=== PATIENT | female | born 1970 | race African-American/Black ===

== ENCOUNTER 2018-03-02 22:14 | Emergency (ER) | payer OTHER ==
[2018-03-02 23:22] LABS: Urine Blood 3+ (NEG); Urine Glucose NEGATIVE (NEG); Urine Protein NEGATIVE (NEG); Urine pH 5.5 (5.0-7.0)
[2018-03-02] MEDS ORDERED: ONDANSETRON 4 MG (ODT) TAB ONE (23:43)
[2018-03-02 23:55] LABS: Urine Culture Reflex Order NOT NEEDED
[2018-03-02 23:56] LABS: Urine Bacteria <20 /HPF (<20); Urine RBC >50 /HPF (NONE SEEN); Urine Trichomonas PRESENT (NONE SEEN)
--- NOTE | 2018-03-02 23:58 | EDPHYS ---
Physician Documentation [facility] Name: Diamante Nath Age: 47 yrs Sex: Female : 1970 Arrival Date: 03/02/2018 Time: 22:17 Bed 19 Private MD: Opal Disla H ED Physician Kris Stewart HPI: 03/03 00:22 This 47 yrs old Black Female presents to ER via Ambulatory with complaints of Urinary ps1 Problem, Nausea. 00:22 The patient presents to the emergency department with nausea. Onset: The ps1 symptoms/episode began/occurred 3 day(s) ago. Possible causes: antibiotics, bactrim for suspected UTI and abscess. The patient has been recently seen by a physician: the patient's primary care provider. no new sexual partners. C/o no discharge but urine frequency and nausea after starting bactrim for abscess. 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 - Social history:: Smoking status: Patient uses tobacco products, smokes one-half pack cigarettes per day. ROS: 03/03 00:22 Constitutional: Negative for fever, chills, and weight loss, Eyes: Negative for injury, ps1 pain, redness, and discharge, Neck: Negative for injury, pain, and swelling, Cardiovascular: Negative for chest pain, palpitations, and edema, Respiratory: Negative for shortness of breath, cough, wheezing, and pleuritic chest pain. MS/Extremity: Negative for injury and deformity, Skin: Negative for injury, rash, and discoloration, Neuro: Negative for headache, weakness, numbness, tingling, and seizure. Abdomen/GI: Positive for nausea. : Positive for urinary frequency. Exam: 00:22 Constitutional: This is a well developed, well nourished patient who is awake, alert, ps1 and in no acute distress. Head/Face: Normocephalic, atraumatic. Eyes: Pupils equal round and reactive to light, extra-ocular motions intact. Lids and lashes normal. Conjunctiva and sclera are non-icteric and not injected. Chest/axilla: Normal chest wall appearance and motion. Nontender with no deformity. No lesions are appreciated. Cardiovascular: Regular rate and rhythm. No gallops, murmurs, or rubs. Normal PMI, no JVD. No pulse deficits. Respiratory: Lungs have equal breath sounds bilaterally, clear to auscultation and percussion. No rales, rhonchi or wheezes noted. No increased work of breathing, no retractions or nasal flaring. Abdomen/GI: Soft, non-tender, with normal bowel sounds. No distension or tympany. No guarding or rebound. No evidence of tenderness throughout. Back: No spinal tenderness. No costovertebral tenderness. Full range of motion. Skin: Warm, dry with normal turgor. Normal color with no rashes, no lesions, and no evidence of cellulitis. MS/ Extremity: Pulses equal, no cyanosis. Neurovascular intact. Full, normal range of motion. Neuro: Awake and alert, GCS 15, oriented to person, place, time, and situation. Cranial nerves II-XII grossly intact. Sensory grossly intact. Vital Signs: 03/02 22:59 BP 142 / 53; Pulse 87; Resp 16 S; Temp 99.0(O); Pulse Ox 99% on R/A; Weight 81.19 kg jd3 (R); Height 5 ft. 6 in. (167.64 cm) (R); Pain 0/10; 03/03 00:34 BP 129 / 72; Pulse 79; Resp 17 S; Pulse Ox 99% on R/A; jd3 03/02 22:59 Body Mass Index 28.89 (81.19 kg, 167.64 cm) jd3 MDM: 03/02 23:36 Patient medically screened. ps1 03/03 00:22 Data reviewed: vital signs, nurses notes, lab test result(s). ps1 00:22 ED course: urine positive for trich. Will treat with flagyl. Addtionally home with ps1 zofran. . 03/02 22:57 Order name: Urine Culture snw 03/02 22:57 Order name: Urine Microscopic Only; Complete Time: 23:56 snw 03/02 23:20 Order name: Urine Dipstick--Ancillary (enter results); Complete Time: 23:29 rg2 03/02 23:22 Order name: Urine --Ancillary (enter results); Complete Time: 00:02 rg2 03/02 23:44 Order name: Basic Metabolic Panel; Complete Time: 00:22 jd3 03/02 22:57 Order name: Urine Dipstick-Ancillary (obtain specimen); Complete Time: 23:18 snw Administered Medications: 03/02 23:58 Drug: Zofran 4 mg Route: PO; jd3 03/03 00:34 Follow up: Response: No adverse reaction jd3 Disposition: 03/02/18 23:58 Discharged to Home. Impression: Trichomoniasis. - Condition is Stable. - Prescriptions for Flagyl 500 mg Oral Tablet - take 1 tablet by ORAL route every 12 hours for 7 days; 14 tablet. Zofran 4 mg Oral Tablet - take 1 tablet by ORAL route every 12 hours As needed; 20 tablet. - Medication Reconciliation Form, Thank You Letter, Antibiotic Education, Prescription Opioid Use form. - Follow up: Opal Disla DO; When: As needed; Reason: Recheck today's complaints, Continuance of care, Re-evaluation by your physician. Follow up: Emergency Department; When: As needed; Reason: Fever > 102 F, Worsening of condition. - Problem is an ongoing problem. - Symptoms are unchanged. Signatures: Dispatcher [employer] EDNy Culp, MORENO-C TIMBER INSPECTOR-Csnw Drew Stevenson, RN RN jd3 Kris Stewart MD MD ps1
--- NOTE | 2018-03-02 23:58 | ER ---
Nurse's Notes [facility] Name: Diamante Nath Age: 47 yrs Sex: Female : 1970 Arrival Date: 03/02/2018 Time: 22:17 Bed 19 Private MD: Opal Disla H Diagnosis: Trichomoniasis Presentation: 03/02 22:55 Presenting complaint: Patient states: "every time I eat or drink I have been getting jd3 nauseous for about a week now. also my legs have been cramping.". Transition of care: patient was not received from another setting of care. Onset of symptoms was February 23, 2018. Initial Sepsis Screen: Does the patient meet any 2 criteria? No. Patient's initial sepsis screen is negative. Does the patient have a suspected source of infection? No. Patient's initial sepsis screen is negative. Care prior to arrival: None. 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 - Social history:: Smoking status: Patient uses tobacco products, smokes one-half pack cigarettes per day. Screenin:01 Abuse screen: Denies threats or abuse. Nutritional screening: No deficits noted. jd3 Tuberculosis screening: No symptoms or risk factors identified. Fall Risk None identified. Assessment: 23:00 General: Appears in no apparent distress. uncomfortable, Behavior is calm, cooperative, jd3 appropriate for age. Pain: Denies pain. Neuro: Level of Consciousness is awake, alert, obeys commands. Cardiovascular: Heart tones S1 S2 present Capillary refill < 3 seconds Patient's skin is warm and dry. Respiratory: Airway is patent Respiratory effort is even, unlabored, Respiratory pattern is regular, symmetrical, Breath sounds are clear bilaterally. GI: Abdomen is round Bowel sounds present X 4 quads. Abd is soft and non tender X 4 quads. Reports nausea. : No signs and/or symptoms were reported regarding the genitourinary system. EENT: No signs and/or symptoms were reported regarding the EENT system. Derm: Skin is intact, Skin is dry, Skin is normal, Skin temperature is warm. Musculoskeletal: Circulation, motion, and sensation intact. Range of motion: intact in all extremities. 03/03 00:34 Reassessment: Patient appears in no apparent distress at this time. Patient and/or jd3 family updated on plan of care and expected duration. Pain level reassessed. Patient is alert, oriented x 3, equal unlabored respirations, skin warm/dry/pink. pt reported understanding of discharge instructions, even and steady gait upon discharge. Vital Signs: 03/02 22:59 BP 142 / 53; Pulse 87; Resp 16 S; Temp 99.0(O); Pulse Ox 99% on R/A; Weight 81.19 kg jd3 (R); Height 5 ft. 6 in. (167.64 cm) (R); Pain 0/10; 03/03 00:34 BP 129 / 72; Pulse 79; Resp 17 S; Pulse Ox 99% on R/A; jd3 03/02 22:59 Body Mass Index 28.89 (81.19 kg, 167.64 cm) jd3 ED Course: 03/02 22:17 Patient arrived in ED. am2 22:18 Opal Disla DO is Private Physician. am2 22:55 Drew Stevenson, BHAVNA is Primary Nurse. jd3 22:57 Triage completed. jd3 23:00 Arm band placed on. jd3 23:02 Patient has correct armband on for positive identification. Bed in low position. Call j light in reach. Side rails up X 1. 23:28 Kris Stewart MD is Attending Physician. ps1 23:57 Opal Disla DO is Referral Physician. ps1 23:58 Basic Metabolic Panel Sent. jd3 03/03 00:34 No provider procedures requiring assistance completed. Patient did not have IV access j during this emergency room visit. Administered Medications: 03/02 23:58 Drug: Zofran 4 mg Route: PO; jd3 03/03 00:34 Follow up: Response: No adverse reaction jd3 Outcome: 03/02 23:58 Discharge ordered by . ps1 03/03 00:34 Discharged to home ambulatory. jd3 Condition: stable Discharge instructions given to patient, Instructed on discharge instructions, follow up and referral plans. medication usage, Demonstrated understanding of instructions, follow-up care, medications, Prescriptions given X 1. 00:36 Patient left the ED. jd3 Signatures: Alla Carty Jonathon, RN RN jd3 Kris Stewart MD MD ps1
[2018-03-03 00:18] LABS: BUN Blood Urea Nitrogen 16 mg/dL (6-20); Bicarbonate 23 mEq/L (21-31); Glucose Level 138 mg/dL (65-120); Potassium 4.3 mEq/L (3.6-5.0); Sodium Level 134 mEq/L (135-145)
== END 2018-03-03 00:36 | disposition home or self-care (01) ==
LOC: ER 22:14
DX: A59.9 Trichomoniasis, unspecified (principal); I10 Essential (primary) hypertension; E11.9 Type 2 diabetes mellitus without complications; E78.00 Pure hypercholesterolemia, unspecified; F17.210 Nicotine dependence, cigarettes, uncomplicated
CPT/HCPCS: 36415; 80048; 81003; 81015; 81025; 87086; 87088; 99283

== ENCOUNTER 2018-10-03 09:05 | Emergency (ER) | payer OTHER ==
--- OUTSIDE RECORDS SUMMARY | 2018-10-03 09:07 | XMS REPORT ---
:1970 Author Organization eClinicalWorks Care Team Providers Name Role Phone Jane Montez Provider Role Unavailable Allergies No Known Allergies Problems Problem Type Condition Code Onset Dates Condition Status Problem Current smoker F17.200 Active Problem Type 2 diabetes mellitus with E11.8 Active complication, without long-term current use of insulin Problem Hypercholesteremia E78.00 Active Problem Hypertension, unspecified type I10 Active Medications Medication Code System Code Instructions Start Date End Date Status Dosage Diflucan [facility] 51420209729 150 MG Orally May 09, May 11, Active 1 tablet Take one now and 2017 2017 repeat dose in 72h Results No Known Results Summary Purpose eClinicalWorks Submission
--- OUTSIDE RECORDS SUMMARY | 2018-10-03 09:07 | XMS REPORT ---
:1970 Author Organization eClinicalWorks Care Team Providers Name Role Phone Jane Montez Provider Role Unavailable Allergies, Adverse Reactions, Alerts Substance Reaction Event Type N.K.D.A. Info Not Available Non Drug Allergy Problems Problem Type Condition Code Onset Dates Condition Status Assessment Hypertension, unspecified type I10 Active Assessment Encounter for screening mammogram Z12.31 Active for malignant neoplasm of breast Assessment Current smoker F17.200 Active Assessment Type 2 diabetes mellitus with E11.8 Active complication, without long-term current use of insulin Assessment Hypercholesteremia E78.00 Active Problem Current smoker F17.200 Active Problem Type 2 diabetes mellitus with E11.8 Active complication, without long-term current use of insulin Problem Hypercholesteremia E78.00 Active Assessment Well woman exam with routine Z01.419 Active gynecological exam Assessment Vaginal discharge N89.8 Active Problem Hypertension, unspecified type I10 Active Medications Medication Code Code Instructions Start End Status Dosage System Date Date Lovastatin [facility] 49010848122 10 MG Orally Active 1 tablet Once a day with the evening meal Lisinopril ND 43627691110 20 MG Orally Active 1 tablet Once a day Aspir-81 ND 56109225158 81 MG Orally Active 1 tablet Once a day Metformin HCl ND 16561499095 500 MG Orally Active 1 tablet Once a day with a meal Results No Known Results Summary Purpose eClinicalWorks Submission
[2018-10-03 11:18] LABS: Absolute Lymphocytes (CBC) 1.2 K/uL (0.7-4.9); Absolute Monocytes 0.4 K/uL (0.1-1.3); Absolute Neutrophil 4.8 K/uL (1.8-8.0); Basophils % 0.4 % (0-1.3); Eosinophils % 0.4 % (0-4.4); Hematocrit 38.6 % (36.0-45.0); Lymphocytes % 18.9 % (15.3-44.8); MCV 74.9 fL (80-100); MPV 8.2 fL (7.6-11.3); Monocytes % 6.3 % (3.3-12.3); RBC Red Blood Cell Count 5.16 M/uL (3.86-4.86)
[2018-10-03 11:29] LABS: Urine Blood NEGATIVE (NEG); Urine Glucose NEGATIVE (NEG); Urine Protein 2+ (NEG); Urine Specific Gravity >1.030 (1.005-1.030); Urine pH 5.5 (5.0-7.0)
[2018-10-03 11:36] LABS: Blood Morphology Comment NOT SEEN (NOT SEEN); Platelet Estimate ADEQ
[2018-10-03 11:41] LABS: ALT/SGPT 20 U/L (12-78); AST/SGOT 18 U/L (15-37); Albumin 3.9 g/dL (3.4-5.0); Alkaline Phosphatase 56 U/L (45-117); BUN Blood Urea Nitrogen 19 mg/dL (7-18); Bicarbonate 21 mmol/L (21-32); Bilirubin Direct < 0.1 mg/dL (0-0.2); Bilirubin Total 0.2 mg/dL (0.2-1.0); Glucose Level 189 mg/dL (74-106); Lipase 248 U/L (73-393); Potassium 4.2 mmol/L (3.5-5.1); Protein, Total 7.9 g/dL (6.4-8.2); Sodium Level 138 mmol/L (136-145)
--- NOTE | 2018-10-03 12:08 | ER ---
Nurse's Notes [facility] Name: Diamante Nath Age: 48 yrs Sex: Female : 1970 Arrival Date: 10/03/2018 Time: 09:12 Bed Treatment Private MD: Opal Disla H Diagnosis: Low back pain;Dysuria Presentation: 10/03 09:46 Presenting complaint: Patient states: urinary frequency Monday, yesterday woke up with iw back pain and not going very much, mild burning with urination, increasing right low back pain. Transition of care: patient was not received from another setting of care. Onset of symptoms was October 01, 2018. Risk Assessment: Do you want to hurt yourself or someone else? Patient reports no desire to harm self or others. Initial Sepsis Screen: Does the patient meet any 2 criteria? No. Patient's initial sepsis screen is negative. Does the patient have a suspected source of infection? No. Patient's initial sepsis screen is negative. Care prior to arrival: None. 09:46 Method Of Arrival: Ambulatory iw 09:46 Acuity: REBECCA 4 iw Triage Assessment: 12:00 General: Appears in no apparent distress. Behavior is calm, cooperative. 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 - Social history:: Smoking status: Patient uses tobacco products, smokes one-half pack cigarettes per day. - Ebola Screening: : Patient negative for fever greater than or equal to 101.5 degrees Fahrenheit, and additional compatible Ebola Virus Disease symptoms Patient denies exposure to infectious person Patient denies travel to an Ebola-affected area in the 21 days before illness onset No symptoms or risks identified at this time. Screenin:02 Abuse screen: Denies threats or abuse. Denies injuries from another. Nutritional iw screening: No deficits noted. Tuberculosis screening: No symptoms or risk factors identified. Fall Risk IV access (20 points). Assessment: 11:00 General: Appears in no apparent distress. Behavior is calm, cooperative. Pain: iw Complains of pain in right low back. Neuro: Level of Consciousness is awake, alert, obeys commands, Oriented to person, place, time, situation. Cardiovascular: Capillary refill < 3 seconds in bilateral fingers Patient's skin is warm and dry. Respiratory: Respiratory effort is even, unlabored, Respiratory pattern is regular, symmetrical. GI: No signs and/or symptoms were reported involving the gastrointestinal system. Derm: Skin is intact, is healthy with good turgor. Musculoskeletal: Range of motion: intact in all extremities. 12:02 Reassessment: Patient appears in no apparent distress at this time. Patient and/or iw family updated on plan of care and expected duration. Pain level reassessed. Patient is alert, oriented x 3, equal unlabored respirations, skin warm/dry/pink. Vital Signs: 09:49 BP 122 / 74; Pulse 100; Resp 18 S; Temp 97.4(TE); Pulse Ox 99% on R/A; Weight 83.01 kg; iw Height 5 ft. 6 in. (167.64 cm); Pain 8/10; 09:49 Body Mass Index 29.54 (83.01 kg, 167.64 cm) iw ED Course: 09:12 Patient arrived in ED. mr 09:12 Opal Disla DO is Private Physician. mr 09:48 Triage completed. iw 09:49 Arm band placed on. iw 10:18 Te Mariano PA is PHCP. jmm 10:18 Raleigh Azevedo MD is Attending Physician. jmm 11:00 Patient has correct armband on for positive identification. iw 11:02 Karon Terry, BHAVNA is Primary Nurse. iw 11:02 Initial lab(s) drawn, by me, sent to lab. Inserted saline lock: 20 gauge in left iw antecubital area, using aseptic technique. Blood collected. 11:47 US Extremity Venous Unilateral Ltd In Process Unspecified. EDMS 12:00 No provider procedures requiring assistance completed. iw 12:08 Opal Disla DO is Referral Physician. sweetie 12:24 IV discontinued, intact, bleeding controlled, No redness/swelling at site. Pressure iw dressing applied. Administered Medications: No medications were administered Outcome: 12: Discharge ordered by MD. sweetie 12: Discharged to home ambulatory. iw 12:25 Condition: good 12:25 Discharge instructions given to patient, Instructed on discharge instructions, follow up and referral plans. medication usage, Demonstrated understanding of instructions, follow-up care, medications, Prescriptions given X 2. 12:26 Patient left the ED. iw Signatures: Dispatcher [employer] EDMS Te Mariano PA PA jmm Rivera, Mary mr Williams, Irene, BHAVNA RN iw
--- NOTE | 2018-10-03 12:09 | EDPHYS ---
Physician Documentation [facility] Name: Diamante Nath Age: 48 yrs Sex: Female : 1970 Arrival Date: 10/03/2018 Time: 09:12 Bed Treatment Private MD: Opal Disla H ED Physician Raleigh Azevedo HPI: 10/03 10:25 This 48 yrs old Black Female presents to ER via Ambulatory with complaints of Urinary jmm Problem, Back Pain. 10:25 The patient presents with urinary symptoms, dysuria. Onset: The symptoms/episode jmm began/occurred gradually. 10:26 Modifying factors: The symptoms are alleviated by nothing, the symptoms are aggravated jmm by nothing. Associated signs and symptoms: Pertinent negatives: diarrhea, fever. This is a 48 year old female that presents to the ED with difficulty with urination and lower back pain. Patient denies abdominal pain, denies vomiting, denies fever. . 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 - Social history:: Smoking status: Patient uses tobacco products, smokes one-half pack cigarettes per day. - Ebola Screening: : Patient negative for fever greater than or equal to 101.5 degrees Fahrenheit, and additional compatible Ebola Virus Disease symptoms Patient denies exposure to infectious person Patient denies travel to an Ebola-affected area in the 21 days before illness onset No symptoms or risks identified at this time. ROS: 10:26 Constitutional: Negative for fever, chills, and weight loss, Eyes: Negative for injury, jmm pain, redness, and discharge, Cardiovascular: Negative for chest pain, palpitations, and edema, Respiratory: Negative for shortness of breath, cough, wheezing, and pleuritic chest pain, Abdomen/GI: Negative for abdominal pain, nausea, vomiting, diarrhea, and constipation. 10:26 Back: Positive for pain at rest. 10:26 : Positive for urinary symptoms, small amounts. 10:26 All other systems are negative. Exam: 10:26 Head/Face: atraumatic. Eyes: EOMI, no conjunctival erythema appreciated ENT: Moist [facility] Mucus Membranes Neck: Trachea midline, Supple Chest/axilla: Normal chest wall appearance and motion. Cardiovascular: Regular rate and rhythm. No edema appreciated Respiratory: Normal respirations, no respiratory distress appreciated Abdomen/GI: Non distended, soft 10:26 Constitutional: The patient appears in no acute distress, alert, awake. 10:26 Back: pain, that is very mild, of the right low back. 10:26 : CVA tenderness, noted bilaterally. 10:26 Musculoskeletal/extremity: ROM: intact in all extremities. 10:26 Skin: Appearance: Color: normal in color. 10:26 Neuro: Orientation: is normal, Mentation: is normal, Memory: is normal. 10:26 Psych: Behavior/mood is pleasant, cooperative. Vital Signs: 09:49 BP 122 / 74; Pulse 100; Resp 18 S; Temp 97.4(TE); Pulse Ox 99% on R/A; Weight 83.01 kg; iw Height 5 ft. 6 in. (167.64 cm); Pain 8/10; 09:49 Body Mass Index 29.54 (83.01 kg, 167.64 cm) iw MDM: 10:21 Patient medically screened. [facility] 12:08 Data reviewed: vital signs, nurses notes. Counseling: I had a detailed discussion with [facility] the patient and/or guardian regarding: the historical points, exam findings, and any diagnostic results supporting the discharge/admit diagnosis, lab results, radiology results, the need for outpatient follow up, to return to the emergency department if symptoms worsen or persist or if there are any questions or concerns that arise at home. 16:07 Data interpreted: Pulse oximetry: on room air is 99 %. Interpretation: normal. [facility] 10/03 10:33 Order name: Basic Metabolic Panel; Complete Time: 11:50 [facility] 10/03 10:33 Order name: CBC with Diff; Complete Time: 11:38 [facility] 10/03 10:33 Order name: Creatinine for Radiology; Complete Time: 11:50 [facility] 10/03 10:33 Order name: Hepatic Function; Complete Time: 11:50 [facility] 10/03 10:33 Order name: Lipase; Complete Time: : [facility] 10/03 11:13 Order name: Urine Dipstick--Ancillary (enter results); Complete Time: 11:38 10/03 10:28 Order name: Urine Dipstick-Ancillary (obtain specimen); Complete Time: 11: [facility] 10/03 10:33 Order name: IV Saline Lock; Complete Time: 11: [facility] 10/03 10:33 Order name: Labs collected and sent; Complete Time: 11: [facility] 10/03 10:34 Order name: US Extremity Venous Unilateral Ltd; Complete Time: 16:07 [facility] 10/03 11:37 Order name: Manual Differential; Complete Time: 11:38 EDMS Administered Medications: No medications were administered Disposition: 16:58 Co-signature as Attending Physician, Raleigh Azevedo MD I agree with the assessment and shalini plan of care. Disposition: 10/03/18 12:08 Discharged to Home. Impression: Low back pain, Dysuria. - Condition is Stable. - Discharge Instructions: Back Pain, Adult, Dysuria. - Prescriptions for Cephalexin 500 mg Oral Capsule - take 1 capsule by ORAL route every 12 hours for 7 days; 20 capsule. orphenadrine citrate 100 mg Oral Tablet Sustained Release - take 1 tablet by ORAL route 2 times per day As needed; 20 tablet. - Medication Reconciliation Form, Thank You Letter, Antibiotic Education, Prescription Opioid Use form. - Follow up: Opal Disla DO; When: 2 - 3 days; Reason: Recheck today's complaints, Continuance of care, Re-evaluation by your physician. Signatures: Dispatcher [employer] Raleigh Cottrell MD MD cha Mickail, Joel, PA PA jmm Williams, Irene, RN RN iw Corrections: (The following items were deleted from the chart) 12:26 12:08 10/03/2018 12:08 Discharged to Home. Impression: Low back pain; Dysuria. iw Condition is Stable. Forms are Medication Reconciliation Form, Thank You Letter, Antibiotic Education, Prescription Opioid Use. Follow up: Opal Disla; When: 2 - 3 days; Reason: Recheck today's complaints, Continuance of care, Re-evaluation by your physician. sweetie
--- NOTE | 2018-10-03 12:22 | RAD REPORT ---
EXAM DESCRIPTION: US - Extremity Venous Uni Ltd - 10/03/2018 11:46 am CLINICAL HISTORY: Right leg pain and swelling COMPARISON: None. TECHNIQUE: Real-time sonographic evaluation of the right lower extremity deep venous systems was per formed. FINDINGS: Normal compressibility, flow augmentation, phasic flow and spontaneous flow are identified in the right lower extremity common femoral, superficial femoral, popliteal and posterior tibial vei ns. No intraluminal filling defects seen. IMPRESSION: No DVT in the right lower extremity.
== END 2018-10-03 12:26 | disposition home or self-care (01) ==
LOC: ER 09:05
DX: R30.0 Dysuria (principal); I10 Essential (primary) hypertension; E11.9 Type 2 diabetes mellitus without complications; E78.00 Pure hypercholesterolemia, unspecified; F17.210 Nicotine dependence, cigarettes, uncomplicated
CPT/HCPCS: 36415; 80048; 80076; 81003; 83690; 85025; 93971; 99284

== ENCOUNTER 2019-06-05 17:42 | Emergency (ER) | payer OTHER, SELFPAY ==
--- OUTSIDE RECORDS SUMMARY | 2019-06-05 17:44 | XMS REPORT ---
[...] Start Date End Date Status Dosage Diflucan [facility] [id number] 150 MG Orally May 09, May 11, Active 1 tablet Take one now and 2017 2017 repeat dose in 72h Results No Known Results Summary Purpose eClinicalWorks Submission
--- OUTSIDE RECORDS SUMMARY | 2019-06-05 17:44 | XMS REPORT ---
:1970 [facility] [address] [place] [address] Care Team Providers Name Role Phone Unavailable Unavailable Unavailable Problems This patient has no known problems. Allergies, Adverse Reactions, Alerts This patient has no known allergies or adverse reactions. Medications This patient has no known medications.
--- OUTSIDE RECORDS SUMMARY | 2019-06-05 17:44 | XMS REPORT ---
[...] End Status Dosage System Date Date Lovastatin [facility] 71133047882 10 MG Orally Active 1 tablet Once a day with the evening meal Lisinopril ND 29693070004 20 MG Orally Active 1 tablet Once a day Aspir-81 ND [id number] 81 MG Orally Active 1 tablet Once a day Metformin HCl ND 09241935274 500 MG Orally Active 1 tablet Once a day with a meal Results No Known Results Summary Purpose eClinicalWorks Submission
[2019-06-05 19:30] LABS: Absolute Lymphocytes (CBC) 1.1 K/uL (0.7-4.9); Basophils % 0.4 % (0-1.3); Hematocrit 35.3 % (36.0-45.0); Lymphocytes % 21.3 % (15.3-44.8); MPV 8.7 fL (7.6-11.3)
[2019-06-05 19:45] LABS: CKMB Creatine Kinase MB 1.7 ng/mL (0.3-3.6); Potassium 3.8 mmol/L (3.5-5.1); Troponin (Emerg Dept Use Only) 0.02 ng/mL (0.0-0.045)
--- NOTE | 2019-06-05 19:54 | EDPHYS ---
Physician Documentation [facility] Name: Diamante Nath Age: 49 yrs Sex: Female : 1970 Arrival Date: 06/05/2019 Time: 17:45 Bed 17 Private MD: Opal Disla H ED Physician Merrick Fleming HPI: 06/05 19:50 This 49 yrs old Black Female presents to ER via Ambulatory with complaints of Near kb Syncope. 19:50 The patient has experienced near-syncope, felt faint. Onset: The symptoms/episode kb began/occurred just prior to arrival. Duration: This was a single episode. Context: occurred at work, occurred while the patient was standing, Just prior to the episode the patient experienced no apparent symptoms. Associated injury: The patient did not suffer any apparent associated injury. Associated signs and symptoms: Pertinent positives: lightheadedness. Current symptoms: Currently, the patient is not experiencing any symptoms, the patient feels back to baseline, no decreased level of consciousness, no confusion, no dysphasia, no headache, no paralysis, no visual changes. The patient has not experienced similar symptoms in the past. The patient has not recently seen a physician. Pt reports she was standing at work and felt faint. States she feels fine now, but wanted to get checked out before returning to work. 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 - Social history:: Smoking status: Patient uses tobacco products, smokes one-half pack cigarettes per day. - Ebola Screening: : No symptoms or risks identified at this time. ROS: 19:49 Constitutional: Negative for fever, chills, and weight loss, ENT: Negative for injury, kb pain, and discharge, Neck: Negative for injury, pain, and swelling, Cardiovascular: Negative for chest pain, palpitations, and edema, Respiratory: Negative for shortness of breath, cough, wheezing, and pleuritic chest pain, Abdomen/GI: Negative for abdominal pain, nausea, vomiting, diarrhea, and constipation, Back: Negative for injury and pain, : Negative for injury, bleeding, discharge, and swelling, MS/Extremity: Negative for injury and deformity, Skin: Negative for injury, rash, and discoloration. 19:49 Neuro: Positive for near syncope. Exam: 19:49 Constitutional: This is a well developed, well nourished patient who is awake, alert, kb and in no acute distress. Head/Face: Normocephalic, atraumatic. Eyes: Pupils equal round and reactive to light, extra-ocular motions intact. Lids and lashes normal. Conjunctiva and sclera are non-icteric and not injected. Cornea within normal limits. Periorbital areas with no swelling, redness, or edema. ENT: Nares patent. No nasal discharge, no septal abnormalities noted. Tympanic membranes are normal and external auditory canals are clear. Oropharynx with no redness, swelling, or masses, exudates, or evidence of obstruction, uvula midline. Mucous membranes moist. Neck: Trachea midline, no thyromegaly or masses palpated, and no cervical lymphadenopathy. Supple, full range of motion without nuchal rigidity, or vertebral point tenderness. No Meningismus. Chest/axilla: Normal chest wall appearance and motion. Nontender with no deformity. No lesions are appreciated. Cardiovascular: Regular rate and rhythm with a normal S1 and S2. No gallops, murmurs, or rubs. Normal PMI, no JVD. No pulse deficits. Respiratory: Lungs have equal breath sounds bilaterally, clear to auscultation and percussion. No rales, rhonchi or wheezes noted. No increased work of breathing, no retractions or nasal flaring. Abdomen/GI: Soft, non-tender, with normal bowel sounds. No distension or tympany. No guarding or rebound. No evidence of tenderness throughout. Back: No spinal tenderness. No costovertebral tenderness. Full range of motion. Skin: Warm, dry with normal turgor. Normal color with no rashes, no lesions, and no evidence of cellulitis. MS/ Extremity: Pulses equal, no cyanosis. Neurovascular intact. Full, normal range of motion. Neuro: Awake and alert, GCS 15, oriented to person, place, time, and situation. Cranial nerves II-XII grossly intact. Motor strength 5/5 in all extremities. Sensory grossly intact. Cerebellar exam normal. Normal gait. 19:53 ECG was reviewed by the Attending Physician. kb Vital Signs: 17:58 BP 130 / 65; Pulse 75; Resp 16; Temp 98.1; Pulse Ox 99% ; Weight 77.11 kg; Height 5 ft. hb 6 in. (167.64 cm); Pain 0/10; 18:22 BP 111 / 64 Supine; Pulse 70; jl7 18:24 BP 118 / 64 Sitting; Pulse 69; jl7 18:25 BP 116 / 82; Pulse 80; jl7 19:20 BP 104 / 63; Pulse 68; Resp 16 S; Temp 98.4(O); Pulse Ox 98% on R/A; cc3 20:25 BP 128 / 74; Pulse 66; Resp 16 S; Pulse Ox 99% on R/A; cc3 21:00 BP 126 / 75; Pulse 71; Resp 15 S; Pulse Ox 98% on R/A; cc3 17:58 Body Mass Index 27.44 (77.11 kg, 167.64 cm) hb MDM: 18:01 Patient medically screened. kb 19:50 Data reviewed: vital signs, nurses notes. Data interpreted: Pulse oximetry: on room air kb is 99 %. Interpretation: normal. Counseling: I had a detailed discussion with the patient and/or guardian regarding: the historical points, exam findings, and any diagnostic results supporting the discharge/admit diagnosis, lab results, the need for outpatient follow up, a family practitioner, to return to the emergency department if symptoms worsen or persist or if there are any questions or concerns that arise at home. 20:03 ED course: No urinary symptoms. kb 06/05 18:24 Order name: Basic Metabolic Panel; Complete Time: 19:49 kb 06/05 18:24 Order name: CBC with Diff; Complete Time: 19:33 kb 06/05 18:24 Order name: Ckmb; Complete Time: 19:49 kb 06/05 18:24 Order name: CPK; Complete Time: 19:49 kb 06/05 18:24 Order name: Magnesium; Complete Time: 19:49 kb 06/05 18:24 Order name: Troponin (emerg Dept Use Only); Complete Time: 19:49 kb 06/05 18:24 Order name: EKG; Complete Time: 18:25 kb 06/05 18:24 Order name: Cardiac monitoring; Complete Time: 18:29 kb 06/05 18:24 Order name: EKG - Nurse/Tech; Complete Time: 18:28 kb 06/05 19:38 Order name: Urine Dipstick--Ancillary (enter results); Complete Time: 20:02 cm6 06/05 19:38 Order name: Urine --Ancillary (enter results); Complete Time: 20:02 cm6 06/05 19:58 Order name: Urine Microscopic Only; Complete Time: 20:26 kb 06/05 20:22 Order name: Urine Culture EDMS 06/05 18:24 Order name: IV Saline Lock; Complete Time: 19:12 kb 06/05 18:24 Order name: Labs collected and sent; Complete Time: 19:12 kb 06/05 18:24 Order name: NPO; Complete Time: 18:28 kb 06/05 18:24 Order name: O2 Per Protocol; Complete Time: 18:28 kb 06/05 18:24 Order name: O2 Sat Monitoring; Complete Time: 18:28 kb 06/05 18:24 Order name: Urine Dipstick-Ancillary (obtain specimen); Complete Time: 19:35 kb 06/05 18:24 Order name: Orthostatics; Complete Time: 18:28 kb EC:53 Rate is 70 beats/min. Rhythm is regular, Normal Sinus Rhythm. QRS [place] is Normal. MI kb interval is normal at 144 msec. QRS interval is normal at 84 msec. QT interval is normal at 420 msec. Administered Medications: 20:05 Drug: NS 0.9% 500 ml Route: IV; Rate: bolus; Site: right antecubital; cc3 21:00 Follow up: Response: No adverse reaction; IV Status: Completed infusion; IV Intake: cc3 500ml Disposition: 06/05/19 19:53 Discharged to Home. Impression: Syncope and collapse. - Condition is Stable. - Discharge Instructions: Near-Syncope. - Medication Reconciliation Form, Thank You Letter, Antibiotic Education, Prescription Opioid Use form. - Follow up: Emergency Department; When: As needed; Reason: Worsening of condition. Follow up: Private Physician; When: 2 - 3 days; Reason: Recheck today's complaints, Continuance of care, Re-evaluation by your physician. Signatures: Dispatcher [employer] EDJanis Childs, FISHER DIP NET-C FISHER DIP NET-Chrissy Aguayo RN RN Iwona Neil cc3 Corrections: (The following items were deleted from the chart) 21:03 19:53 06/05/2019 19:53 Discharged to Home. Impression: Syncope and collapse. Condition cc3 is Stable. Forms are Medication Reconciliation Form, Thank You Letter, Antibiotic Education, Prescription Opioid Use. Follow up: Emergency Department; When: As needed; Reason: Worsening of condition. Follow up: Private Physician; When: 2 - 3 days; Reason: Recheck today's complaints, Continuance of care, Re-evaluation by your physician. kb
--- NOTE | 2019-06-05 19:54 | ER ---
Nurse's Notes [facility] Name: iDamante Nath Age: 49 yrs Sex: Female : 1970 Arrival Date: 06/05/2019 Time: 17:45 Bed 17 Private MD: Opal Disla H Diagnosis: Syncope and collapse Presentation: 06/05 17:56 Presenting complaint: Near syncopal episode while standing at work, then again while hb sitting. Denies pain/fever/cough. Transition of care: patient was not received from another setting of care. Onset of symptoms was June 05, 2019. Risk Assessment: Do you want to hurt yourself or someone else? Patient reports no desire to harm self or others. Care prior to arrival: None. 17:56 Method Of Arrival: Ambulatory hb 17:56 Acuity: REBECCA 3 hb 19:15 Initial Sepsis Screen: Does the patient meet any 2 criteria? No. Patient's initial cc3 sepsis screen is negative. Does the patient have a suspected source of infection? No. Patient's initial sepsis screen is negative. 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 - Social history:: Smoking status: Patient uses tobacco products, smokes one-half pack cigarettes per day. - Ebola Screening: : No symptoms or risks identified at this time. Screenin:00 Abuse screen: Denies threats or abuse. Denies injuries from another. Nutritional jl7 screening: No deficits noted. Tuberculosis screening: No symptoms or risk factors identified. Fall Risk IV access (20 points). Total Amanda Fall Scale indicates No Risk (0-24 pts). Assessment: 18:00 General: Appears in no apparent distress. uncomfortable, Behavior is calm, cooperative, jl7 appropriate for age. Pain: Denies pain. Neuro: Level of Consciousness is awake, alert, obeys commands, Oriented to person, place, time, situation, District Engineer are equal bilaterally Moves all extremities. Full function Gait is steady, Speech is normal, Facial symmetry appears normal. Cardiovascular: Heart tones S1 S2 present Patient's skin is warm and dry. Respiratory: Airway is patent Respiratory effort is even, unlabored, Respiratory pattern is regular, symmetrical, Breath sounds are clear bilaterally. GI: No signs and/or symptoms were reported involving the gastrointestinal system. : No signs and/or symptoms were reported regarding the genitourinary system. EENT: No signs and/or symptoms were reported regarding the EENT system. Derm: Skin is pink, warm \T\ dry. Musculoskeletal: No signs and/or symptoms reported regarding the musculoskeletal system. 19:15 Reassessment: Patient appears in no apparent distress at this time. Patient and/or cc3 family updated on plan of care and expected duration. Pain level reassessed. Patient is alert, oriented x 3, equal unlabored respirations, skin warm/dry/pink. Received this female patient from morning shift BHAVNA Fragoso as a case of near syncope still for IV cannulation and phlebotomy as endorsed. Patient denies pain at this time. General: Appears in no apparent distress. comfortable, Behavior is calm, cooperative, appropriate for age. Pain: Denies pain. Neuro: Level of Consciousness is awake, alert, obeys commands, Oriented to person, place, time, situation, Appropriate for age District Engineer are equal bilaterally Moves all extremities. Full function Gait is steady, Speech is normal, Facial symmetry appears normal. Cardiovascular: Denies chest pain, Heart tones S1 S2 present Capillary refill < 3 seconds Patient's skin is warm and dry. Respiratory: Airway is patent Respiratory effort is even, unlabored, Respiratory pattern is regular, symmetrical, Breath sounds are clear bilaterally. GI: Abdomen is round non-distended. : No signs and/or symptoms were reported regarding the genitourinary system. EENT: No signs and/or symptoms were reported regarding the EENT system. Derm: Skin is intact, is healthy with good turgor, Skin is pink, warm \T\ dry. normal, Skin temperature is warm. Musculoskeletal: Circulation, motion, and sensation intact. Range of motion: intact in all extremities. 20:18 Reassessment: Patient appears in no apparent distress at this time. Patient and/or cc3 family updated on plan of care and expected duration. Pain level reassessed. Patient is alert, oriented x 3, equal unlabored respirations, skin warm/dry/pink. Patient denies pain at this time. 21:00 Reassessment: Patient appears in no apparent distress at this time. Patient and/or cc3 family updated on plan of care and expected duration. Pain level reassessed. Patient is alert, oriented x 3, equal unlabored respirations, skin warm/dry/pink. SHANT Vargas discharged the patient home, no prescription given. IV cannula removed and patient left ER vitally stable and ambulatory. No valuables left in the patient's room. Patient denies pain at this time. Patient states feeling better. Patient states symptoms have improved. Vital Signs: 17:58 BP 130 / 65; Pulse 75; Resp 16; Temp 98.1; Pulse Ox 99% ; Weight 77.11 kg; Height 5 ft. hb 6 in. (167.64 cm); Pain 0/10; 18:22 BP 111 / 64 Supine; Pulse 70; jl7 18:24 BP 118 / 64 Sitting; Pulse 69; jl7 18:25 BP 116 / 82; Pulse 80; jl7 19:20 BP 104 / 63; Pulse 68; Resp 16 S; Temp 98.4(O); Pulse Ox 98% on R/A; cc3 20:25 BP 128 / 74; Pulse 66; Resp 16 S; Pulse Ox 99% on R/A; cc3 21:00 BP 126 / 75; Pulse 71; Resp 15 S; Pulse Ox 98% on R/A; cc3 17:58 Body Mass Index 27.44 (77.11 kg, 167.64 cm) hb ED Course: 17:45 Patient arrived in ED. mr 17:46 Opal Disla DO is Private Physician. mr 17:57 Triage completed. hb 17:58 Arm band placed on. hb 18:00 Bel Vidal, BHAVNA is Primary Nurse. jl7 18:00 Patient has correct armband on for positive identification. Placed in gown. Bed in low jl7 position. Call light in reach. Side rails up X2. service cashier on. Pulse ox on. NIBP on. Warm blanket given. 18:00 Urine collected: clean catch specimen, clear, EKG done, by ED staff, reviewed by susanne DELCID. 18:01 Janis Vargas FNP-C is PHCP. kb 18:01 Merrick Fleming MD is Attending Physician. kb 19:12 Initial lab(s) drawn, by me, sent to lab. Inserted saline lock: 20 gauge in right lt1 antecubital area, using aseptic technique. 21:00 No provider procedures requiring assistance completed. IV discontinued, intact, cc3 bleeding controlled, No redness/swelling at site. Pressure dressing applied. Administered Medications: 20:05 Drug: NS 0.9% 500 ml Route: IV; Rate: bolus; Site: right antecubital; cc3 21:00 Follow up: Response: No adverse reaction; IV Status: Completed infusion; IV Intake: cc3 500ml Intake: 21:00 IV: 500ml; Total: 500ml. cc3 Outcome: 19:53 Discharge ordered by . kb 21:00 Discharged to home ambulatory. cc3 21:00 Condition: stable 21:00 Discharge instructions given to patient, Instructed on discharge instructions, follow up and referral plans. Demonstrated understanding of instructions, follow-up care. 21:03 Patient left the ED. cc3 Signatures: Janis Vargas FNP-C FNP-Papa NgaKristen Heather RN Bel Echevarria RN RN Iwona Rodriguez cc3 Claudette Guthrie lt1
[2019-06-05 20:00] LABS: Urine Blood NEGATIVE (NEG); Urine Glucose TRACE (NEG); Urine Protein 2+ (NEG); Urine Specific Gravity >1.030 (1.005-1.030); Urine pH 5.5 (5.0-7.0)
[2019-06-05 20:21] LABS: Urine Bacteria >50 /HPF (<20); Urine Culture Reflex Order REFLEXED; Urine RBC <5 /HPF (NONE SEEN)
[2019-06-05] MEDS ORDERED: NA CHLORIDE 0.9% 500 ML ONE (20:25)
--- NOTE | 2019-06-06 07:36 | EKG ---
Test Date: 2019-06-05 Test Time: 18:21:50 Commercial Manager: FARZANEH MEASUREMENT RESULTS: Intervals: Rate: 70 OK: 144 QRSD: 84 QT: 420 QTc: 453 [place]: P: 55 OK: 144 QRS: 44 T: 65 INTERPRETIVE STATEMENTS: Normal sinus rhythm Normal ECG Compared to ECG 04/26/2017 03:41:41 No significant changes Electronically Signed On 06-06-19 07:35:24 CDT by Girogio Capps
== END 2019-06-05 21:03 | disposition home or self-care (01) ==
LOC: ER 17:42
DX: R55 Syncope and collapse (principal); E11.9 Type 2 diabetes mellitus without complications; I10 Essential (primary) hypertension; E78.00 Pure hypercholesterolemia, unspecified; Z79.84 Long term (current) use of oral hypoglycemic drugs
CPT/HCPCS: 36415; 80048; 81003; 81015; 81025; 82550; 82553; 83735; 84484; 85025; 87077; 87086; 87088; 87186; 93005